=== PATIENT | male | born 1940 | race Caucasian/White ===

== ENCOUNTER 2019-03-25 21:15 | Emergency (ER) | payer MEDICARE, OTHER, SELFPAY ==
[~2019-03-25] VITALS: Ht 182.9 cm; Wt 72.5 kg
[2019-03-25 23:26] VITALS: BP 137/83
== END 2019-03-25 23:29 | disposition home or self-care (01) ==
LOC: ED 22:15
DX: S00.81XA Abrasion of other part of head, initial encounter (principal); S60.512A Abrasion of left hand, initial encounter; S60.511A Abrasion of right hand, initial encounter; S50.312A Abrasion of left elbow, initial encounter; S80.212A Abrasion, left knee, initial encounter; S90.512A Abrasion, left ankle, initial encounter; G89.11 Acute pain due to trauma; M79.661 Pain in right lower leg; I10 Essential (primary) hypertension; Z87.891 Personal history of nicotine dependence; W03.XXXA Other fall on same level due to collision with another person, initial encounter; Y93.89 Activity, other specified; Y92.89 Other specified places as the place of occurrence of the external cause; Y99.8 Other external cause status
CPT/HCPCS: 71045; 99283